=== PATIENT | male | born 1990 | race Caucasian/White ===

== ENCOUNTER 2019-10-08 20:04 | Emergency (ER) | payer OTHER ==
[~2019-10-08] VITALS: Ht 172.7 cm; Wt 93.0 kg
[2019-10-08 20:10] VITALS: Ht 172.7 cm; Wt 93.0 kg
[2019-10-08 21:32] VITALS: BP 136/68
== END 2019-10-08 21:32 | disposition home or self-care (01) ==
LOC: ED 20:04
DX: S90.822A Blister (nonthermal), left foot, initial encounter (principal); S90.821A Blister (nonthermal), right foot, initial encounter; Z90.49 Acquired absence of other specified parts of digestive tract; X58.XXXA Exposure to other specified factors, initial encounter; Y93.89 Activity, other specified; Y92.89 Other specified places as the place of occurrence of the external cause; Y99.8 Other external cause status